=== PATIENT | female | born 1975 | race Two or more races ===

== ENCOUNTER 2017-06-15 19:50 | Emergency (ER) | payer SELFPAY ==
--- NOTE | 2017-06-15 23:19 | NUR ---
CALLED FOR PT NO ANSWER
--- NOTE | 2017-06-16 00:43 | NUR ---
CALLED FOR PT NO ANS LWBT
== END 2017-06-16 00:44 | disposition left against medical advice (07) ==
LOC: ER 19:52
DX: Z53.21 Procedure and treatment not carried out due to patient leaving prior to being seen by health care provider (principal)